=== PATIENT | female | born 2000 | race Caucasian/White ===

== ENCOUNTER → 2019-02-18 14:55 | Outpatient (BNVA) | payer MEDICAID, SELFPAY | PROVIDERS: Family Provider Registered Nurse; PCP Registered Nurse; Visit Provider Obstetrics & Gynecology | DX: O09.30 Supervision of pregnancy with insufficient antenatal care, unspecified trimester (principal) | CPT/HCPCS: 81003 ==

== ENCOUNTER → 2019-02-25 08:15 | Outpatient (BNVA) | payer MEDICAID, SELFPAY | PROVIDERS: Family Provider Registered Nurse; PCP Registered Nurse; Visit Provider Obstetrics & Gynecology | DX: O09.33 Supervision of pregnancy with insufficient antenatal care, third trimester (principal) | CPT/HCPCS: 81003 ==

== ENCOUNTER 2019-03-03 17:26 | Inpatient (IN) | payer MEDICAID, SELFPAY ==
[2019-03-03] VITALS (9 sets, daily range): BP systolic 102–138; BP diastolic 54–80; PULSE 84–101; TEMP 36.6–36.7; BMI 44.7
[2019-03-03 19:44] LABS: Basophils % 0.1 %; Eosinophils # 0.3 10^3/uL (0.0-0.8); Eosinophils % 1.9 %; Hematocrit 30.6 % (37.0-47.0); Hemoglobin 9.2 g/dL (11.5-15.3); Lymphocytes # 2.3 10^3/uL (1.5-6.5); Mean Corpuscular HGB Conc 30.1 g/dL (30.0-36.0); Mean Corpuscular Hemoglobin 23.4 pg (28.0-34.0); Mean Corpuscular Volume 77.7 fL (81-99); Monocytes # 1.1 10^3/uL (0.2-0.9); Monocytes % 7.5 %; Neutrophils # 10.7 10^3/uL (1.8-8.0); Neutrophils % 73.9 %; Nucleated Red Blood Cells % 0.1 %; Platelet Count 286 10^3/cmm (130-400); Red Blood Count 3.94 10^6/uL (4.1-5.3); Red Cell Distribution Width 16.7 % (12.1-15.1); White Blood Count 14.5 10^3/uL (4.5-13.0)
[2019-03-03 20:01] LABS: Glucose Point of Care 90 mg/dL (70-110)
[2019-03-03] MEDS: miSOPROStol 100 mcg tablet 25 MCG VAGINAL (20:34)
[2019-03-03 21:00] LABS: Glucose Point of Care 89 mg/dL (70-110)
--- NOTE | 2019-03-03 22:55 | PC.NURSE ---
See chart [id number] for documentation on patient from 1725 to 192.
[2019-03-04] VITALS (77 sets, daily range): BP systolic 0–155; BP diastolic 0–92; PULSE 78–210; RESP 16–18; TEMP 36.5–37.4; O2SAT 97–99
[2019-03-04 00:51] LABS: Glucose Point of Care 157 mg/dL (70-110)
[2019-03-04] MEDS: zolpidem 5 mg Tablet 10 MG PO (00:56)
[2019-03-04 06:13] LABS: Glucose Point of Care 102 mg/dL (70-110)
[2019-03-04] MEDS: miSOPROStol 100 mcg tablet 25 MCG VAGINAL ×2 (08:47→15:06)
[2019-03-04 12:15] LABS: Glucose Point of Care 89 mg/dL (70-110)
--- NOTE | 2019-03-04 16:28 | PC.NURSE ---
Patient up to bathroom and presses call light. Marbleizing Machine Tender goes in to patient's room and patient has cytotec pill on piece of toilet paper in hand. Will notify Dr. Guajardo.
[2019-03-04 17:27] LABS: Glucose Point of Care 123 mg/dL (70-110)
[2019-03-04] MEDS: fentaNYL 50 mcg/mL INJ 2mL IVP (18:29)
--- NOTE | 2019-03-04 19:32 | ANES.PREANES ---
Pre-Anesthetic Assessment Pre-Anesthetic Assessment: Height/Weight: Temp Pulse Resp BP 98.5 F 84 16 144/64 03/04/19 18:46 03/04/19 19:19 03/04/19 18:46 03/04/19 19:19 Preop Diagnosis: labor Proposed Procedure: epidural Last Intake: 18:00 Social: Social History: Tobacco and No alcohol Packs per day: 1/2ppd Exam: Pre-Anes Outpt Exam: alert, oriented x 3, clear to auscultation bilaterally and regular rate & rhythm Airway: Submandibular: WNL Cervical ROM: WNL MP: 2 Pulmonary: Pulmonary: Asthma Comments: inhailer every 6 months CV/HEM: CV/HEM: None reported : : None reported Hepatic: Hepatic: None reported GI: GI: GERD Comments: Metabolic: Metabolic: DM and Morbid obesity Comments: gestational Musc/skel: Musc/skel: None reported Neuropsych: Neuropsych: None reported Anesthetic Plan: ASA status: II Anesthesia: Anesthesia Evaluation and Eval. for regional block (epidural) Risk of > 500 ml blood loss (7ml/kg in children): No Meds/Allergies Current Medications: Current Medications Generic Name Dose Route Start Last Admin Trade Name Freq PRN Reason Stop Dose Admin Fentanyl 25 - 100 mcg 03/03/19 19:25 03/04/19 18:29 Sublimaze IVP 25 mcg Q1H PRN Administration SEVERE PAIN Lactated Ringer's 2,000 mls @ 999 m ls/hr 03/04/19 18:25 03/04/19 18:37 Lactated Ringers IV 03/04/19 20:25 999 mls/hr .Q2H1M ONE Administration Misoprostol 25 mcg 03/04/19 14:32 03/04/19 15:06 Cytotec VAGINAL 25 mcg Q4H PRN Administration Cervical Ripening Data Anesthesia CBC & Chem 7: 03/03/19 18:45 Other Labs: Laboratory Results - last 48 hr 03/03/19 03/03/19 03/03/19 18:45 19:46 20:56 WBC 14.5 H RBC 3.94 L Hgb 9.2 L Hct 30.6 L MCV 77.7 L MCH 23.4 L MCHC 30.1 RDW 16.7 H Plt Count 286 MPV 10.0 Neut % (Auto) 73.9 Lymph % (Auto) 16.0 [place] % (Auto) 7.5 Eos % (Auto) 1.9 Baso % (Auto) 0.1 Neut # (Auto) 10.7 H Lymph # (Auto) 2.3 [place] # (Auto) 1.1 H Eos # (Auto) 0.3 Baso # (Auto) 0.0 Nucleated RBC % (auto) 0.1 Nucleated RBCs # 0.0 POC Glucose 90 89 03/04/19 03/04/19 03/04/19 00:36 06:00 12:11 WBC RBC Hgb Hct MCV MCH MCHC RDW Plt Count MPV Neut % (Auto) Lymph % (Auto) [place] % (Auto) Eos % (Auto) Baso % (Auto) Neut # (Auto) Lymph # (Auto) [place] # (Auto) Eos # (Auto) Baso # (Auto) Nucleated RBC % (auto) Nucleated RBCs # POC Glucose 157 102 89 03/04/19 17:21 WBC RBC Hgb Hct MCV MCH MCHC RDW Plt Count MPV Neut % (Auto) Lymph % (Auto) [place] % (Auto) Eos % (Auto) Baso % (Auto) Neut # (Auto) Lymph # (Auto) [place] # (Auto) Eos # (Auto) Baso # (Auto) Nucleated RBC % (auto) Nucleated RBCs # POC Glucose 123 Cardiac Studies: No Data to Display
--- NOTE | 2019-03-04 20:19 | ANES.PROC ---
Anesthesia Procedures Procedure/Date: 03/04/19 Epidural: Time Out Performed: Yes Consents Signed: Procedure Consent Consent: requested by attending/covering physician Lumbar Level: L3-L4 Epidural position: sitting Epidural procedure: sterile prep of area (betadine), 1% lidocaine to numb the area (3ml), 18 g needle, neg for paresthesia, test dose given, 1.5% xylocaine 1:200k epi (5ml), 0.2% Ropivacaine bolus ml (5ml), placed PCEA, no systemic response, sterile dressing applied, L.U.D. no apparent complications and 0.2% Ropiavacaine @ mls/hr (13ml/hr)
[2019-03-04] MEDS: oxytocin 30 UNIT/500 ML BAG IV (20:51)
[2019-03-04] MEDS: lactated ringers 1,000 ML 125 ML IV (20:59)
[2019-03-04 21:39] LABS: Glucose Point of Care 85 mg/dL (70-110)
--- NOTE | 2019-03-04 21:50 | P.PN_ITS ---
Subjective Subjective: Interval history: Patient is a 18-year-old white female 3, para 1-0-1-1 with an unknown LMP and an EDC of 03/09/2019 based on 22-week ultrasound, which places her at 39-2/7 weeks gestation today. Patient presented to labor and delivery in the evening of 03/03/2019 for Cytotec cervical ripening and induction of labor due to gestational diabetes. On admission she was noted to be 40% effaced, 3 cm dilated, and a -4 station. She received 1 dose of Cytotec in the evening and proceeded to contract through the night. By this morning, she has made minimal change and received 2 more doses of Cytotec through the day. By this evening, she has become uncomfortable and had made another cervical change (70% effaced and 5 cm dilated at a -3 station) that epidural was given. She is now been started on Pitocin augmentation. Patient reports that she is currently comfortable. She reports having some pinkish discharge. She reports baby has been moving. She denies leaking of fluid. Vitals/I&O/Wt Last Vital Signs Temp 98.5 F 03/04/19 18:46 Pulse 94 03/04/19 21:35 Resp 16 03/04/19 18:46 BP 96/48 03/04/19 21:35 Pulse Ox 98 03/04/19 20:35 03/04/19 03/04/19 03/04/19 06:59 14:59 22:59 Intake Total 2001.50 / 2001.50 Balance 2000.50 / 2000.50 Weight last 48 hrs Weight 260 lb 9.17 oz Physical Exam : OTHER: Last exam by the nurse at 20: 34 on 03/04/2019 was 70% effaced, 5 cm dilated, -3 station. Monitoring: Baseline heart rate in the 120s with moderate variability and accelerations present. No decelerations noted. Category 1 tracing. Contractions every 3 to 4 minutes. Data : 03/03/19 18:45 A&P Assessment and plan (1) Diabetes in : Patient is currently 39-2/7 weeks gestation with gestational diabetes controlled with oral agents. She is currently being induced due to being 39 weeks with gestational diabetes. Sugars have been monitored through the labor course and have not required medications at this time. Continue to monitor sugars. Patient has received a total of 3 doses of Cytotec 25 mcg vaginally and is now on Pitocin augmentation. Continue with induction of labor. heart rate is reassuring with a baseline rate in the 120s with moderate variability and accelerations present. This is a category 1 tracing. Discussed with patient and family that induction can be a very long process and that this is not unexpected at this time. Questions were answered. Status: Acute Qualifiers: Diabetes in type: gestational Gestational diabetes mellitus control: oral hypoglycemic-controlled Trimester: third trimester Qualified Code(s): O24.415 - Gestational diabetes mellitus in , controlled by oral hypoglycemic drugs Code(s): O24.919 - Unspecified diabetes mellitus in , unspecified trimester (2) Anemia affecting : Admission CBC shows an H&H of 9.2 and a hematocrit of 30.6. She is currently stable at this. Whether she needs treatment or not will depend upon blood loss at the time of delivery and her degree of symptomatology afterwards. Status: Acute Qualifiers: Trimester: third trimester Qualified Code(s): O99.013 - Anemia complicating , third trimester Code(s): O99.019 - Anemia complicating , unspecified trimester Attestations Medical Necessity Statement*: Patient is currently being induced due to medication controlled gestational diabetes at 39 weeks gestation. Coding Level of Care Code Acute Water Meter Mechanic for Randy Grubbs Diagnoses Diabetes in O24.415 Diabetes in type: gestational Gestational diabetes mellitus control: oral hypoglycemic-controlled Trimester: third trimester Anemia affecting O99.013 Trimester: third trimester
[2019-03-05] VITALS (34 sets, daily range): BP systolic 0–156; BP diastolic 0–78; PULSE 75–126; RESP 16–18; TEMP 36.5–37.1; O2SAT 94–97
--- NOTE | 2019-03-05 03:01 | P.PCNOB_ITS ---
Delivery Note: Date of delivery: 03/05/19 Pre-delivery diagnoses: 1. Gestational diabetes on oral agents in third trimester, 2. at 39-2/7 weeks gestation, 3. Anemia in in third trimester, 4. Obesity complicating in third trimester. Post-delivery diagnoses: 1. Gestational diabetes on oral agents - delivered, 2. Anemia in - delivered, 3. at 39-3/7 weeks gestation, 4. Obesity complicating - delivered, 5. Viable male infant Procedure: Spontaneous vaginal delivery Anesthesia: epidural Delivering Physician: Dr. Vaughn Guajardo Estimated blood loss (mL): 200 Pre-Delivery Course: Patient is a 18-year-old white female 3, para 1-0-1-1 with an unknown LMP and an EDC of 03/09/2019 based on 22-week ultrasound, which placed her at 39-1/7-week gestation at the time of admission. She presented to labor and delivery in the evening of 03/03/2019 for Cytotec cervical ripening and induction of labor due to gestational diabetes. Her sugars have been controlled on oral agents in the office. On admission, she was noted to be 40% effaced, 3 cm dilated, at a -4 station. She received 1 dose of Cytotec 25 mcg vaginally and contracted through the night. By the following morning she had made no significant change and through the day received 2 more doses of Cytotec 25 mcg vaginally. By the evening being she had progressed to 75% effaced, 5 cm dilation, and a -3 station. Epidural was given at that time. She was then started on Pitocin augmentation. She continued to contract regularly. She was found to be an anterior lip at 02: 08 on 03/05/2019. Artificial rupture membranes was performed at 02: 35 with clear fluid present. She was noted to be completely dilated at that time. Sugars were followed during labor and patient required no treatment for diabetes during the labor. heart monitoring remained reassuring during the labor course. Delivery: Patient started pushing at 02: 38 and delivered at 02: 43 as a spontaneous vaginal delivery of an occiput posterior male infant over an intact perineum under epidural anesthesia. Following delivery of the 's head, one loop of nuchal cord was noted and reduced. The rest of the rapidly delivered with the left shoulder anterior. Nose and mouth were suctioned with bulb suction. was placed on the mother's abdomen where the cord was clamped and was then cut by the reported father of the baby. Baby was spontaneously crying and left in the care of the waiting nurses. Cord blood was obtained. Pitocin bolus was started. Placenta delivered intact by simple expression at 02: 47. The cervix and vagina were palpated and noted to be intact. The labia were inspected and noted to be intact except for superficial abrasions which required no repair and a second-degree midline hymenal ring laceration which was repaired with 3-0 Vicryl suture. FINDINGS 1. Viable male infant weighing 7 lbs 11 oz (3475 g) with a length of 20-1/2 inches and Apgars of 8 at 1 minute and 9 at 5 minutes. 2. Three-vessel cord with one loop of nuchal cord noted. 3. Normal-appearing placenta with an eccentric cord insertion. Post-Delivery Status: Mother and were left to recover in satisfactory condition. Coding Level of Care Code Acute Operations Project Manager for Randy Grubbs
[2019-03-05] MEDS: TRAMadol 50 mg Tablet PO (05:21)
[2019-03-05] MEDS: benzocaine-menthol 78 gm Canister 1 SPRAY TOPICAL (05:22)
[2019-03-05] MEDS: docusate sodium 100 mg Capsule PO ×2 (11:16→21:32)
[2019-03-05] MEDS: prenatal vitamin Capsule 1 CAP PO (11:16)
[2019-03-05 15:58] LABS: Hematocrit 27.6 % (37.0-47.0); Hemoglobin 8.4 g/dL (11.5-15.3); Mean Corpuscular HGB Conc 30.4 g/dL (30.0-36.0); Mean Corpuscular Hemoglobin 24.1 pg (28.0-34.0); Mean Corpuscular Volume 79.3 fL (81-99); Platelet Count 210 10^3/cmm (130-400); Red Blood Count 3.48 10^6/uL (4.1-5.3); Red Cell Distribution Width 16.7 % (12.1-15.1); White Blood Count 15.4 10^3/uL (4.5-13.0)
[2019-03-05] MEDS: ferrous sulfate EC 325 mg Tablet PO (16:03)
[2019-03-06 03:08] VITALS: BP 122/71; PULSE 82; RESP 18; TEMP 36.5
[2019-03-06] MEDS: ferrous sulfate EC 325 mg Tablet PO (10:02)
[2019-03-06] MEDS: docusate sodium 100 mg Capsule PO (10:02)
[2019-03-06] MEDS: prenatal vitamin Capsule 1 CAP PO (10:02)
[2019-03-06 10:05] VITALS: BP 113/71; PULSE 83; RESP 16; TEMP 36.5
--- NOTE | 2019-03-06 13:23 | P.DS_ITS ---
Discharge Providers Date of Admission: 03/04/19 21:50 Date of Discharge: 03/06/19 Attending Provider at Admission: Vaughn Guajardo Attending Provider at Discharge: Vaughn Guajardo Primary Care Provider: Saba Green Diagnoses at Discharge Discharge Diagnosis (1) Gestational diabetes mellitus, delivered, current hospitalization: Status: Acute (2) Anemia during , delivered, current hospitalization: Status: Acute Reason for Visit Reason for Visit: Reason For Visit: induction Hospital Course Hospital Course: Patient is a 18-year-old white female 3, para 1-0-1-1 with an unknown LMP and an EDC of 03/09/2019 based on 22-week ultrasound, which placed her at 39-1/7 weeks gestation at the time of admission. had been complicated by gestational diabetes controlled on metformin and anemia. care had been mainly provided by Dr. Vaughn Guajardo at [facility]. She presented to labor and delivery in the evening of 03/03/2019 for Cytotec cervical ripening and induction to labor due to gestational diabetes controlled on oral medications. Her cervix was 3 cm dilated, 40% effaced, and a -4 station on admission. Starting that evening, she received a total of 3 doses of Cytotec 25 mcg vaginally through the following afternoon. She was started on Pitocin for augmentation and had epidural placed. By 02: 08 on 03/05/2019, she had progressed to an anterior lip. She progressed to complete dilation by 02: 35. Blood sugars were monitored during the labor course and remained within expected ranges without insulin being needed. She also was noted to be anemic on arrival to the hospital. She delivered at 02: 43 on 03/05/2019 as a spontaneous vaginal delivery of an occiput posterior male over an intact perineum under epidural anesthesia. The baby weighed 7 lbs 11 oz (3475 g) with a length of 20-1/2 inches and Apgars of 8 at 1 minute and 9 at 5 minutes. Following delivery both the mother and infant did well. day 1 Patient reports doing well. She states her pain is been well controlled. She denied lightheadedness or dizziness with ambulation. She denied shortness of breath or chest pains. She reported tolerating a regular diet without nausea or vomiting. She denied problems with urination. She stated that her bleeding was slowing. She was requesting to go home. PLAN Patient was anemic following delivery with the blood count having dropped as expected from the delivery standpoint. She has been instructed to continue oral iron at home. Discharge to home. Discharge instructions were discussed with the patient. She is to follow-up in the office at approximately 6 weeks . Physical Exam Const: COMMON NORMALS: no apparent distress, average body habitus, alert and well nourished GENERAL APPEARANCE: well developed ORIENTATION/CONSCIOUSNESS: Yes oriented to person, Yes oriented to place and Yes oriented to time Resp: COMMON NORMALS: normal respiratory effort and clear to auscultation bilaterally AUSCULTATION: clear to auscultation bilaterally Cardio: COMMON NORMALS: regular rate, regular rhythm, no gallops, no murmurs and no rub RATE: regular rate RHYTHM: regular rhythm GI: COMMON NORMALS: soft to palpation, non-tender, no hepatosplenomegaly and no masses (Except for nontender firm uterus approximately 2 fingerbreadths below the umbilicus) AUSCULTATION: Yes normoactive bowel sounds PALPATION: Yes soft, Yes no hepatosplenomegaly and No hernia : EXTERNAL FEMALE EXAM: No hernia Extremity: OTHER: 2+ lower extremity edema. No calf pain bilaterally. Neuro: SENSORIUM/ORIENTATION: Yes alert, Yes oriented to person, Yes oriented to place and Yes oriented to time Psych: COMMON NORMALS: affect normal MOOD & AFFECT: Yes euthymic mood Discharge Data Data Completed and Pending: Labs from last 24 hours 03/05/19 15:38 WBC 15.4 H RBC 3.48 L Hgb 8.4 L Hct 27.6 L MCV 79.3 L MCH 24.1 L MCHC 30.4 RDW 16.7 H Plt Count 210 MPV 10.0 Vitals: Last Vital Signs Temp 97.7 F 03/06/19 10:05 Pulse 83 03/06/19 10:05 Resp 16 03/06/19 10:05 BP 113/71 03/06/19 10:05 Pulse Ox 94 03/05/19 06:33 Discharge Plan Discharge Patient Disposition: Home, Self-Care Condition: Stable Prescriptions: New ibuprofen 800 mg Tablet 800 mg PO TID Qty: 40 RF: 0 Continued ferrous sulfate 325 mg (65 mg iron) Tablet 325 mg PO BID RF: 0 Vitamin 27 mg iron- 0.8 mg Tablet 1 tab PO DAILY RF: 0 ProAir HFA 90 mcg/actuation Hfa Aerosol Inhaler 2 puff INHALATION QID PRN (Reason: Shortness Of Breath Or Wheezing) RF: 0 Discontinued metformin 500 mg Tablet Extended Release 24 Hr 500 mg PO DAILY RF: 0 Discharge Orders: Discharge Order (Routine); Ordered 03/06/19 Ordered By: Vaughn Guajardo Referrals: Vaughn Guajardo MD [Physician] - 6 Weeks ( exam. Needs 2 hour (75 gm) glucose challenge test - this is a fasting test - and Hemogram at that visit.) Discharge Diet: Regular Discharge Activity: Resume usual activity Activity Restrictions/Additional Instructions: Provide my vaginal delivery discharge instructions Discharge Attestations Time Spent in Discharge Care*: less than 30 min Quality Metrics Clinical Quality Measures During this hospital stay, did patient experience: None Coding Level of Care Code Acute Preparole Counseling Aide for Chg Fwd Diagnoses Gestational diabetes mellitus, delivered, current hospitalization O24.429 Anemia during , delivered, current hospitalization O99.02
[2019-03-06 14:15] VITALS: BP 121/73; PULSE 89; RESP 16; TEMP 36.6
--- NOTE | 2019-03-07 14:11 | PC.NURSE ---
[id number] for further documentation
== END 2019-03-06 14:45 | disposition home or self-care (01) | DRG 807 ==
LOC: OBGYN 03-04 14:55 → OPOB 03-04 14:55
PROVIDERS: Admitting Provider Obstetrics & Gynecology; Family Provider Registered Nurse; PCP Registered Nurse; Visit Provider Obstetrics & Gynecology
DX: O24.425 Gestational diabetes mellitus in childbirth, controlled by oral hypoglycemic drugs (principal); Z37.0 Single live birth; Z3A.39 39 weeks gestation of pregnancy; D64.9 Anemia, unspecified; O99.214 Obesity complicating childbirth; E66.9 Obesity, unspecified; O69.81X0 Labor and delivery complicated by cord around neck, without compression, not applicable or unspecified; O70.0 First degree perineal laceration during delivery; Z79.84 Long term (current) use of oral hypoglycemic drugs; O90.81 Anemia of the puerperium
CPT/HCPCS: 12345; 36415; 36416; 51702; 59025; 59409; 82962; 85025; 85027; 96375; 99211; G0378; G0379; J2795; J3010

== ENCOUNTER 2023-03-17 11:13 | Emergency (ER) | payer BC, MEDICAID, SELFPAY ==
[2023-03-17 11:16] VITALS: BP 111/71; PULSE 80; TEMP 36.4; O2SAT 98; BMI 34.3
--- NOTE | 2023-03-17 11:23 | ED_ITS ---
HPI - General Adult 2 General: Chief complaint: Seizure Stated complaint: Seizures Time Seen by Provider: 03/17/23 11:15 Source: patient and EMS Mode of arrival: EMS Limitations: no limitations History of Present Illness: 22-year-old female states that she got u p this morning went to the bathroom felt lightheaded and passed out she states that her mother witnessed her having convulsions she said she had some slight confusion when she woke up had been out for seconds she is awake and alert and answering all my questions appropriately. She states she did drink 6-8 beers last night for her friend's birthday alliance party denies any vomiting denies any headache Associated symptoms: Reports syncope; Deny chest pain, dyspnea, headache(s), nausea, rash or vomiting Review of Systems 2 Const: Denies: fever(s), chills, body aches or change in appetite ENMT: Denies: throat pain or dental pain Card: Reports: syncope; Denies: chest pain Resp: Denies: dyspnea GI: Denies: abdominal pain, nausea, vomiting or diarrhea Musc: Denies: neck pain or back pain Skin/Breast: Denies: rash Neuro: Reports: seizure-like activity; Denies: headache(s) Physical Exam 2 Const: COMMON NORMALS: no acute distress, patient oriented x3 and healthy appearing HENMT: COMMON NORMALS: normocephalic and atraumatic HEAD & SCALP: n ormocephalic and atraumatic Neck/C-Spine: COMMON NORMALS: full ROM and supple Chest: COMMONS NORMALS: normal inspection of the chest and normal palpation of entire chest wall Resp: COMMON NORMALS: normal respiratory effort, No retractions, No use of accessory muscles and clear to auscultation bilaterally AUSCULTATION: clear to auscultation bilaterally Cardio: COMMON NORMALS: regular rate, regular rhythm and No murmurs present (Cardio) RATE: regular rate RHYTHM: regular rhythm GI: COMMON NORMALS: Normal to inspection, nondistended, normoactive bowel sounds present, Soft to palpation, non-tender and no masses PALPATION: Yes Soft to palpation Extremity: COMMON NORMALS: normal to inspection and full ROM Neuro: COMMON NORMALS: patient oriented x3, moves all extremities and no focal motor deficits Psych: COMMON NORMALS: mental status grossly normal, Normal thought process present and cooperative THOUGHT PROCESS: Normal thought process present Skin: COMMON NORMALS: no rashes or lesions noted and no wounds GENERAL SKIN EXAM: no rashes or lesions noted Course 2 Vital Signs: Vital signs: Vital Signs Temperature 97.6 F 03/17/23 11:16 Pulse Rate 70 03/17/23 12:23 Blood Pressure 97/61 03/17/23 12:23 Pulse Oximetry 98 03/17/23 12:23 Oxygen Delivery Me thod Room Air 03/17/23 12:23 MDM - General Adult Medical Decision Making Patient presents here with seizure versus a syncopal event patient's well- appearing here she is stable for discharge follow-up with neurology return if worsening she understands agrees to plan. Lab Data I reviewed the patient's lab results. 03/17/23 10:30 03/17/23 11:40 Laboratory Results WBC 5.42 10^3/uL (3.29-11.43) 03/17/23 10:30 RBC 4.00 10^6/uL (3.85-5.65) 03/17/23 10:30 Hgb 10.80 g/dL (11.27-16.99) L 03/17/23 10:30 Hct 33.1 % (36-47) L 03/17/23 10:30 MCV 82.8 fl (85-98) L 03/17/23 10:30 MCH 27.0 pg (27-33) 03/17/23 10:30 MCHC 32.6 g/dL (30-55) 03/17/23 10:30 RDW 12.5 % (12.1-15.1) 03/17/23 10:30 Plt Count 264 10^3/cmm (157-399) 03/17/23 10:30 MPV 9.4 fL (7.4-10.4) 03/17/23 10:30 Neut % (Auto) 57.2 % 03/17/23 10:30 Lymph % (Auto) 32.8 % 03/17/23 10:30 [place] % (Auto) 6.8 % 03/17/23 10:30 Eos % (Auto) 2.4 % 03/17/23 10:30 Baso % (Auto) 0.6 % 03/17/23 10:30 Neut # (Auto) 3.10 10^3/uL (1.8-7.7) 03/17/23 10:30 Lymph # (Auto) 1.8 10^3/uL (0.8-4.8) 03/17/23 10:30 [place] # (Auto) 0.4 10^3/uL (0.2-0.9) 03/17/23 10:30 Eos # (Auto) 0.1 10^3/uL (0.0-0.8) 03/17/23 10:30 Baso # (Auto) 0.0 10^3/uL (0.0-0.1) 03/17/23 10:30 Nucleated RBC % (auto) 0 % 03/17/23 10:30 Nucleated RBCs # 0.0 /100WBC 03/17/23 10:30 Sodium 140 mmol/L (136-145) 03/17/23 11:40 Chloride 105 mmol/L (98-107) 03/17/23 11:40 Carbon Dioxide 23 mmol/L (22-29) 03/17/23 11:40 Anion Gap 15.3 (5-19) 03/17/23 11:40 BUN 9 mg/dL (6-20) 03/17/23 11:40 Creatinine 0.8 mg/dL (0.5-0.9) 03/17/23 11:40 Glucose 80 mg/dL (65-115) 03/17/23 11:40 Calculated Osmolality 288 mOsm/kg (285-295) 03/17/23 11:40 Calcium 8.5 mg/dL (8.5-10.5) 03/17/23 11:40 Total Bilirubin 0.2 mg/dL (0.15-1.2) 03/17/23 11:40 AST 17 U/L (0-32) 03/17/23 11:40 ALT 14 U/L (0-33) 03/17/23 11:40 Alkaline Phosphatase 76 U/L (35-105) 03/17/23 11:40 Total Protein 6.8 g/dL (6.6-8.7) 03/17/23 11:40 Albumin 3.8 g/dL (3.5-5.2) 03/17/23 11:40 Globulin 3.0 g/dL (1.3-4.6) 03/17/23 11:40 HCG, Qual Negative (Negative) 03/17/23 11:40 All radiology interpretation(s) finalized by discharge EKG Data EKG 1: I personally reviewed and interpreted this EKG as follows: EKG interpretation date: 03/17/23 EKG interpretation time: 11:50 Interpretation: nsr hr [address] or t wave abnormalities qrs 86 qtc 430 Discharge Plan Discharge Patient Disposition: Home Clinical Impression: New onset seizure Condition: Stable Prescriptions: No Action No Known Home Medications Discharge Orders: Discharge ED (Routine); Ordered 03/17/23 Ordered By: Lambert Vera Referrals: Sadia Austin MD [Physician] - 1-3 days Saba Green FNP [Primary Care Provider] - 1-3 days Discharge Diet: Advance as tolerated Discharge Activity: Resume usual activity Patient Instructions: New-Onset Seizure in Adults (ED) Coding Level of Care Code ED Dental Surgery Doctor for Jonog Humera
--- NOTE | 2023-03-17 11:25 | CT_ITS ---
WS: [id number] CT HEAD NONCONTRAST HISTORY: seizure TECHNIQUE: Contiguous axial imaging performed through the brain in 3.0 mm imaging. Bone and soft tiss ue windows. Sagittal and coronal reformats reviewed. All CT scans at [facility] use at least one of these dose optimization techniques: automated exposure control; mA and/or kV adjustment per pa tient size (includes targeted exams where dose is matched to clinical indication); or iterative recon struction. DLP: 1051.28 mGy.cm COMPARISON: None available. No acute intracranial hemorrhage, midline shift or mass effect. No atrophy or prior infarcts or herniation. Ventricles: Normal size with no hydrocephalus. Mild ectopia of the cerebellar tonsils. Cerebellar tonsils extend less than 5 mm below the foramen ma gnum. Paranasal sinuses: As visualized are clear. Mastoid air cells: Well pneumatized. Calvarium and scalp: Skull is intact with no soft tissue edema or swelling. IMPRESSION: Negative head CT.
[2023-03-17 11:42] VITALS: BP 139/72; PULSE 71; O2SAT 96
--- NOTE | 2023-03-17 11:50 | ECG_ITS ---
[facility] Test Date: 2023-03-17 Pat Name: Marry Gordon Department: Room: Gender: Female Oxygen Therapist: : 2000 Requested By: Lambert Vera Order Number: [id number] Ricardo MD: Parish Darden M.D. Measurements Intervals [place] Rate: 62 P: 49 OR: 173 QRS: 18 QRSD: 86 T: 54 QT: 425 QTc: 433 Interpretive Statements SINUS RHYTHM LOW QRS VOLTAGE IN PRECORDIAL LEADS [QRS DEFLECTION < 1.0 mV IN CHEST LEADS] No previous ECG available for comparison Electronically Signed On 03-17-2023 18:29:[address] ASSOCIATE JUSTICE by Parish Darden M.D. [email or web address] county [id number]
[2023-03-17 11:56] LABS: Basophils % 0.6 %; Eosinophils # 0.1 10^3/uL (0.0-0.8); Eosinophils % 2.4 %; Hematocrit 33.1 % (36-47); Lymphocytes # 1.8 10^3/uL (0.8-4.8); Lymphocytes % 32.8 %; Mean Corpuscular HGB Conc 32.6 g/dL (30-55); Mean Corpuscular Volume 82.8 fl (85-98); Mean Platelet Volume 9.4 fL (7.4-10.4); Monocytes # 0.4 10^3/uL (0.2-0.9); Monocytes % 6.8 %; Neutrophils % 57.2 %; Nucleated Red Blood Cells % 0 %; Platelet Count 264 10^3/cmm (157-399); Red Cell Distribution Width 12.5 % (12.1-15.1); White Blood Count 5.42 10^3/uL (3.29-11.43)
[2023-03-17 12:17] LABS: HCG, Serum Qual Negative (Negative)
[2023-03-17 12:23] VITALS: BP 97/61; PULSE 70; O2SAT 98
[2023-03-17 12:25] LABS: Alanine Aminotransferase 14 U/L (0-33); Albumin Level 3.8 g/dL (3.5-5.2); Alkaline Phosphatase 76 U/L (35-105); Anion Gap 15.3 (5-19); Aspartate Amino Transferase 17 U/L (0-32); Blood Urea Nitrogen 9 mg/dL (6-20); Calcium 8.5 mg/dL (8.5-10.5); Carbon Dioxide 23 mmol/L (22-29); Chloride 105 mmol/L (98-107); Glomerular Filtration Rate 88.1 mL/min (90-130); Glucose 80 mg/dL (65-115); Osmolality Calculated 288 mOsm/kg (285-295); Potassium 3.3 mmol/L (3.5-5.1); Sodium 140 mmol/L (136-145); Total Bilirubin 0.2 mg/dL (0.15-1.2); Total Protein 6.8 g/dL (6.6-8.7)
[2023-03-17 12:38] VITALS: BP 117/74; PULSE 82; O2SAT 99
--- NOTE | 2023-03-17 18:18 | DCPLANNER ---
Message sent to Neurology for a follow up appointment with Genna Dominguez
== END 2023-03-17 12:40 | disposition home or self-care (01) ==
PROVIDERS: Emergency Provider Emergency Medicine; PCP Registered Nurse
DX: G40.89 Other seizures (principal)
CPT/HCPCS: 36415; 70450; 80053; 84703; 85025; 93005; 99284